=== PATIENT | female | born 1990 | race Caucasian/White ===

== ENCOUNTER 2016-12-08 08:51 | Emergency (ER) | payer SELFPAY ==
[~2016-12-08 08:51] MED LIST: B12-1CHW CHEW; CIPR500T4 PO; FOLI1TAB PO; HYDR-3533 PO; ONDA1TAB16 PO
[2016-12-08 08:53] VITALS: BP 136/88; PULSE 81; RESP 15; TEMP 98.2; O2SAT 98
[2016-12-08] MEDS ORDERED: MACR100C2 PO (09:08)
[2016-12-08] MEDS ORDERED: methylPREDNISolone SOD SUCC 125 MG/2 ML VIAL IM ONE (09:15)
[2016-12-08] MEDS ORDERED: BENA25TA6 PO (09:18)
[2016-12-08] MEDS ORDERED: HYDR1CRE TOPICAL (09:18)
[2016-12-08] MEDS ORDERED: PRED20 PO (09:18)
--- NOTE | 2016-12-08 09:19 | PD ---
HPI Chief Complaint: Allergic/Adverse Reaction Time Seen by Provider: 09:01 Travel History International Travel<30 days: No Contact w/Intl Traveler<30days: No Traveled to known affect area: No History of Present Illness HPI This is a 26-year-old female who presents to the emergency department having woken up this morning with an itchy rash that affects mostly the back of her legs and her lower abdomen, constant, moderate severity with no associated shortness of breath, lightheadedness or dizziness. Patient has a history of a kinked ureter and is very concerned that she may be in kidney failure. She also googled her symptoms and thought she may have a problem with her thyroid. She just completed a course of antibiotic for urinary tract infection on Saturday. She thinks it was nitrofurantoin. She also took fluconazole at that time. She doesn't know of any other detergent or new soap exposures. She' s never had hives before. PFSH Past Medical History Diminished Hearing: No Kidney Stones: Yes Immunizations Current: Yes Tetanus Vaccination: < 5 Years ?: Not : 0 Para: 0 Miscarriage: 0 : 0 Past Surgical History Other Surgery: Yes (HAD KINKED URETER, HAD SURGRY AND STENT PLACED AND REMOVED) Social History Alcohol Use: Yes (OCCASSIONAL) Tobacco Use: No Substance Use: No Allergies-Medications (Allergen,Severity, Reaction): Coded Allergies: No Known Allergies (Verified , 12/08/16) Reported Meds & Prescriptions Reported Meds & Active Scripts Active Reported Macrobid (Nitrofurantoin Monoh/Nitrofur Macro) 100 Mg Cap 100 Mg PO BID Review of Systems Except as stated in HPI: all other systems reviewed are Neg Physical Exam Narrative GENERAL:Well appearing, no acute distress SKIN: Patchy erythematous rash over the buttock area, posterior lower extremities and anterior thighs and lower abdomen. HEAD: Atraumatic. Normocephalic. EYES: Pupils equal and round. No injection or drainage. ENT: Moist mucous membranes NECK: Trachea midline. CARDIOVASCULAR: Regular rate and rhythm. No murmur appreciated. RESPIRATORY: Clear to auscultation. Breath sounds equal bilaterally. GASTROINTESTINAL: Abdomen soft, non-tender, nondistended. MUSCULOSKELETAL: No obvious deformities. NEUROLOGICAL: Awake and alert. No obvious cranial nerve deficits. Moving all extremities. PSYCHIATRIC: Appropriate mood and affect; insight and judgment normal. Data Data Last Documented VS Vital Signs Date Time Temp Pulse Resp B/P Pulse Ox O2 Delivery O2 Flow Rate FiO2 12/08/16 08:53 98.2 81 15 136/88 98 MDM Medical Decision Making Medical Screen Exam Complete: Yes Emergency Medical Condition: Yes Differential Diagnosis Urticaria, allergic reaction, anaphylaxis, medication side effect Narrative Course This is a 26-year-old female who presents to the emergency department with urticaria. She has no other signs or symptoms of anaphylaxis. She did complete Macrobid on Saturday which could've been the trigger for her symptoms. She has a couple of focused concerns and is worried about her thyroid and her kidney function. I reassured her that she is urinating normally and the hives are not usually symptom of kidney failure. She is comfortable waiting until she follows up with her doctor in January to get her kidneys evaluated. I think she would benefit from steroids and Benadryl. 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 I think it's reasonable to wait and see how the prednisone helps her. She'll be given an IM injection of salumedrol and a prescription for Benadryl and prednisone as well as hydrocortisone cream. I think she is appropriate for outpatient management. Told her to avoid Macrobid in the future. Diagnosis Primary Impression: Urticaria Patient Instructions: General Instructions Additional Instructions: If you develop swelling of the throat or coughing a lot, wheezing or trouble breathing, throwing up or having diarrhea, feeling dizzy or passing out, or spreading of your rash return to the emergency room immediately as you may be having a life threatening allergic reaction. Complete your course of steroids and take benadryl every 6 hours for the next 48 hours and then as needed for itching or other symptoms. Med/Other Pt SpecificInfo: Prescription(s) given Scripts Hydrocortisone Topical 1% Cream1 Applic TOPICAL BID #1 TUBE Ref 0 Prov:Keysha Ny MD 12/08/16 Diphenhydramine HCl (Benadryl Allergy)25 Mg Tablet1 Tab PO Q6HR PRN (ITCHING) # 14 Prov:Keysha Ny MD 12/08/16 Prednisone 20 Mg Tab40 Mg PO DAILY 4 Days Prov:Keysha Ny MD 12/08/16 Disposition: 01 DISCHARGE HOME Condition: Stable Keysha Ny MD Dec 08, 2016 09:19
== END 2016-12-08 09:34 | disposition home or self-care (01) ==
LOC: NEPD 08:51
DX: L50.9 Urticaria, unspecified (principal); Z87.442 Personal history of urinary calculi
CPT/HCPCS: 96372; 99284; J2930